=== PATIENT | female | born 1945 | race Caucasian/White ===

== ENCOUNTER → 2020-08-20 11:09 | Outpatient (CLI) | payer MEDICARE, OTHER, SELFPAY ==
[2020-08-20 12:27] LABS: COVID19 -Nasal RAPID Negative (Negative)
== END ==
PROVIDERS: Visit Provider Student in an Organized Health Care Education/Training Program
DX: Z20.822 Contact with and (suspected) exposure to COVID-19 (principal); J02.9 Acute pharyngitis, unspecified
CPT/HCPCS: 87070; 87635